=== PATIENT | female | born 1980 | race Caucasian/White ===

== ENCOUNTER 2023-07-24 16:38 | Emergency (ER) | payer OTHER, SELFPAY ==
[2023-07-24 16:54] VITALS: BP 155/88; PULSE 92; RESP 16; TEMP 37.1; O2SAT 98; BMI 44.6
--- NOTE | 2023-07-24 17:35 | ED_ITS ---
HPI - General Adult General Chief complaint: Ear/Nose/Throat Problem Stated complaint: PCP says poss peritonsillar abscess, needs image Time Seen by Provider: 07/24/23 17:34 History of Present Illness HPI narrative: Patient here as directed by PCP with concerns over possible peritonsillar abscess. She has had ongoing throat pain ( mostly left side but sometimes right ), low grade fevers, feeling of throat being swollen since 2022. Has had two courses of antibiotics and steroids without much effect. 42-year-old woman presenting to the emergency department with concern of ?peritonsillar abscess?. Has had throat pain of some sort since . Has been on brief course of prednisone initially along with Augmentin for tonsillitis and concurrent sinusitis. Describes an initial concern of though not quite check peritonsillar abscess. Briefly better worsening again placed on cefdinir and a longer course of prednisone. Now symptoms have recurred. Needs a deep throat pain. She also has pain at her tongue posteriorly. Seems to alternate side to side worse than the left. She has left-sided neck pain. Years of also been congested though it sounds like less so at the moment. Has had a ?fever? noting 99 point 8 or 99.7 over the last couple of days when returning from work. Brief rash in the right upper chest. She is done with having this. She is impressed at how painful her tongue can feel. There have been some white spots that she has removed from her tonsils with a Q-tip. On initial evaluation was screened negative for COVID influenza and strep she says. Later discussed that does have a history of GERD and takes daily omeprazole. Related Data Home Medications Medication Instructions Recorded Confirmed hydrochlorothiazide 25 mg tablet 25 mg PO DAILY 07/24/23 07/24/23 levothyroxine 125 mcg tablet 125 mcg PO DAILY 07/24/23 07/24/23 omeprazole 20 mg capsule,delayed 20 mg PO DAILY 07/24/23 07/24/23 release potassium chloride 10 mEq 10 meq PO DAILY 07/24/23 07/24/23 tablet,extended release Previous Rx's Medication Instructions Recorded Magic Mouthwash 5 - 10 ml PO TID-QID PRN #120 mL 07/24/23 (Lidocaine/Benadryl/Maalox) 120 mL suspension famotidine 40 mg tablet 40 mg PO QHS #30 tabs 07/24/23 Allergies Allergy/AdvReac Type Severity Reaction Status Date / Time erythromycin base Allergy Unknown Verified 07/24/23 16:50 Review of Systems Status of ROS: Reports: 6 or more systems reviewed and unremarkable except as noted in History and below [facility] Social History Smoking Status: Never smoker Second hand tobacco smoke exposure: No How often do you have a drink containing alcohol: never How often do you have six or more drinks on one occasion: Never AUDIT-C Alcohol total score: 0 Non-prescribed substance use: denies use Exam Narrative: Exam Narrative: Pleasant. NAD. Speaking easily. No stridor. Cheeks and neck are flushed. A little bit more full in the left side versus the right of the neck. I do not appreciate lymphadenopathy. Oropharynx with mildly full tonsils without significant erythema. Lungs appear to be clear. Heart with elevated rate in a regular rhythm. Distant. Skin is warm and dry with good turgor. Const: Vital Signs, click to edit/add: Vital Signs - 24 hr 07/24/23 16:54 07/24/23 21:21 Temperature 98.7 F 98.2 F Pulse Rate [Pulse Oximeter] 92 92 Respiratory Rate 16 16 Blood Pressure [Ri t Upper Arm] 155/88 H 135/74 Pulse Oximetry 98 98 Oxygen Delivery Me thod Room Air Room Air Documenting provider has reviewed patient's vital signs: yes Course Vital Signs Vital signs: Initial Vital Signs Temperature 98.7 F 07/24/23 16:54 Temperature Source Temporal Artery Scan 07/24/23 16:54 Pulse Rate 92 07/24/23 16:54 Respiratory Rate 16 07/24/23 16:54 Blood Pressure 155/88 H 07/24/23 16:54 Blood Pressure Mean 110 H 07/24/23 16:54 Blood Pressure Position Sitting 07/24/23 16:54 Pulse Oximetry 98 07/24/23 16:54 Oxygen Delivery Method Room Air 07/24/23 16:54 Vital Signs Temperature 98.7 F 07/24/23 16:54 Pulse Rate 92 07/24/23 16:54 Respiratory Rate 16 07/24/23 16:54 Blood Pressure 155/88 H 07/24/23 16:54 Pulse Oximetry 98 07/24/23 16:54 Oxygen Delivery Method Room Air 07/24/23 16:54 Temperature 98.2 F 07/24/23 22:35 Pulse Rate 92 07/24/23 22:35 Respiratory Rate 16 07/24/23 22:35 Blood Pressure 135/74 07/24/23 22:35 Pulse Oximetry 98 07/24/23 21:21 Oxygen Delivery Method Room Air 07/24/23 21:21 Medications Administered Medications: Discontinued Medications Generic Name Dose Route Start Last Admin Trade Name Eduardo PRN Reason Stop Dose Admin Sodium Chloride 1,000 mls @ 1,000 mls/hr 07/24/23 18:09 07/24/23 21:24 0.9 % Sodium Chloride 1000 Ml IV 07/24/23 19:08 Infused .Q1H ONE Infusion Medical Decision Making MDM Narrative Medical decision making narrative: Other than reported pain I do not see evidence of abscess. Given duration of though of symptoms perhaps it is time to do further imaging as anticipated. Lab work as well. Labs are reassuring with normal white count. Upon review CT images I do not see any fluid collection consistent with abscess. INDICATION: Deep throat and tongue pain for multiple weeks. TECHNIQUE: CT images acquired through the neck following intravenous contrast. COMPARISON: None. FINDINGS: The nasopharynx, oropharynx, hypopharynx, and larynx are widely patent without enhancing lesions. Mild diffuse enlargement of the lingual and palatine tonsils. No thickening of the epiglottis or retropharyngeal edema. The parapharyngeal fat is preserved. No enhancing lesions in the oral cavity or floor of mouth. The parotid and submandibular glands are unremarkable. The thyroid gland is unremarkable. Mildly enlarged bilateral level II lymph nodes demonstrate elongated morphology. Limited images through the brain are without pathologic intracranial enhancement. Minimal mucosal thickening in the visualized paranasal sinuses. The mastoid air cells are clear. No aggressive osseous lesions. No concerning opacities in the visualized lungs. IMPRESSION: 1. No mass or fluid collection in the neck. 2. Mild diffuse enlargement of the palatine and lingual tonsils, nonspecific though most likely reactive. 3. Mildly enlarged bilateral level II lymph nodes demonstrate elongated morphol ogy and are also most likely reactive. Discussed these findings with on-call ENT. Symptoms and findings suspected to be more related to reflux than infection. See patient discharge plan Lab Data Lab results reviewed: Yes I reviewed the patient's lab results Labs: Lab Results 07/24/23 Range/Units 18:08 WBC 11.93 H (4.50-11.00) K/uL RBC 4.78 (4.00-5.20) m/uL Hgb 14.5 (12.0-16.0) gm/dL Hct 44.9 (33.0-51.0) % MCV 94 (80-100) fL MCH 30 (26-34) pg MCHC 32 (32-36) gm/dL RDW Coeff of Esther 13.2 (11.5-15.5) % Plt Count 256 (140-440) K/uL Neut % (Auto) 71.6 (42.0-72.0) % Lymph % (Auto) 20.9 (20-44) % [place] % (Auto) 6.5 (0.0-11.0) % Eos % (Auto) 0.5 (0.0-7.0) % Baso % (Auto) 0.3 (0.0-3.0) % Neut # (Auto) 8.50 H (1.7-7.0) K/uL Lymph # (Auto) 2.50 (0.90-2.90) K/uL [place] # (Auto) 0.80 (0.00-0.90) K/UL Eos # (Auto) 0.10 (0.00-0.50) K/uL Baso # (Auto) 0.00 (0.00-0.30) K/uL Abs Immat Gran (auto) 0.00 (0.00-0.30) K/uL Imm/Tot Granulo (auto) 0.2 % Sodium 138 (135-149) mmol/L Potassium 3.2 L (3.6-5.1) mmol/L Chloride 101 (96-114) mmol/L Carbon Dioxide 29 (20-32) mmol/L Anion Gap 8 (7-15) mEq/L BUN 18 (5-24) mg/dL Creatinine 0.8 (0.5-1.5) mg/dL Estimated Creat Clear 79.91 Estimated GFR 95 ml/min Glucose 93 (60-115) mg/dL Calcium 9.1 (8.4-10.6) mg/dL C-Reactive Protein 1.4 H (0.5-1.0) mg/dL Discharge Plan Discharge Clinical Impression: Tonsillitis Patient Disposition: Home, Self-Care Condition: Stable Additional Instructions: Might get temporary relief with this magic mouthwash though it is not a definitive treatment. Take the famotidine in the evening in addition to your daily omeprazole. I suppose another option is to just stop the omeprazole and see how famotidine works for you. Be sure to sleep with head of bed elevated. Check with your primary to see if they can help you move up your ENT appointment. For now can continue with 400-600 mg of ibuprofen maybe with a little food 2-3 times daily. Alternative to the ibuprofen might be up to 500 mg naproxen twice daily. Can also take acetaminophen up to 1000 mg per dose with either of these. Prescriptions: New famotidine 40 mg tablet 40 mg PO QHS Qty: 30 2RF Magic Mouthwash (Lidocaine/Benadryl/Maalox) 120 mL suspension 5 - 10 ml PO TID-QID PRNQty: 120 0RF Rx Instructions: Lidocaine Viscous 2 % mucosal solution 40 mL; Maalox 200 mg-200 mg-20 mg/5 mL oral suspension 40 mL; Benadryl 12.5 mg/5 mL oral elixir 40 mL; Per 120 mL SWISH AND SPIT. MAY COMPOUND IF FIRST PRODUCT IS NOT AVAILABLE. No Action potassium chloride 10 mEq tablet extended release 10 meq PO DAILY levothyroxine 125 mcg tablet 125 mcg PO DAILY hydrochlorothiazide 25 mg tablet 25 mg PO DAILY omeprazole 20 mg capsule,delayed release(DR/EC) 20 mg PO DAILY Follow Up/Referrals: Provider,Not a Local [Primary Care Provider] - Stand Alone Forms: [facility] Info Instructions
--- NOTE | 2023-07-24 18:07 | CRLHL7_ITS ---
For Patients: As a result of the Century Cures Act, medical imaging exams and procedure reports are released immediately into your electronic medical record. You may view this report before your referring provider. If you have questions, please contact your health care provider. INDICATION: Deep throat and tongue pain for multiple weeks. TECHNIQUE: CT images acquired through the neck following intravenous contrast. COMPARISON: None. FINDINGS: The nasopharynx, oropharynx, hypopharynx, and larynx are widely patent without enhancing lesions. Mild diffuse enlargement of the lingual and palatine tonsils. No thickening of the epiglottis or retropharyngeal edema. The parapharyngeal fat is preserved. No enhancing lesions in the oral cavity or floor of mouth. The parotid and submandibular glands are unremarkable. The thyroid gland is unremarkable. Mildly enlarged bilateral level II lymph nodes demonstrate elongated morphology. Limited images through the brain are without pathologic intracranial enhancement. Minimal mucosal thickening in the visualized paranasal sinuses. The mastoid air cells are clear. No aggressive osseous lesions. No concerning opacities in the visualized lungs. IMPRESSION: 1. No mass or fluid collection in the neck. 2. Mild diffuse enlargement of the palatine and lingual tonsils, nonspecific though most likely reactive. 3. Mildly enlarged bilateral level II lymph nodes demonstrate elongated morphology and are also most likely reactive. Please note that all CT scans at this facility use dose modulation, iterative reconstruction, and/or weight-based dosing when appropriate to reduce radiation dose to as low as reasonably achievable. Dictated by John Pastrana MD @ 07/24/2023 7:27:34 PM (Electronically Signed)
[2023-07-24] MEDS: 0.9 % SODIUM CHLORIDE 1000 ml 1,000 ML IV (19:00)
[2023-07-24 21:15] LABS: Chloride* 101 mmol/L (96-114)
[2023-07-24 21:16] LABS: Potassium* 3.2 mmol/L (3.6-5.1); Sodium* 138 mmol/L (135-149)
[2023-07-24 21:18] LABS: Creatinine* 0.8 mg/dL (0.5-1.5); Est. Creatinine Clearance* 79.91; Estimated Glomerular Filt Rate 95 ml/min
[2023-07-24 21:19] LABS: Anion Gap 8 mEq/L (7-15); Blood Urea Nitrogen* 18 mg/dL (5-24); Calcium* 9.1 mg/dL (8.4-10.6); Carbon Dioxide* 29 mmol/L (20-32); Glucose* 93 mg/dL (60-115)
[2023-07-24 21:21] VITALS: BP 135/74; PULSE 92; RESP 16; TEMP 36.8; O2SAT 98
[2023-07-24 21:22] LABS: C Reactive Protein* 1.4 mg/dL (0.5-1.0)
[2023-07-24 22:06] LABS: Basophils Percent Auto 0.3 % (0.0-3.0); Eosinophils Percent Auto 0.5 % (0.0-7.0); Hematocrit 44.9 % (33.0-51.0); Hemoglobin* 14.5 gm/dL (12.0-16.0); Immature Granulocytes Pct Auto 0.2 %; Lymphocytes Percent Auto 20.9 % (20-44); Mean Corpuscular HGB Conc 32 gm/dL (32-36); Mean Corpuscular Hemoglobin 30 pg (26-34); Mean Corpuscular Volume 94 fL (80-100); Monocytes Percent Auto 6.5 % (0.0-11.0); Neutrophils Percent Auto 71.6 % (42.0-72.0); Platelet Count* 256 K/uL (140-440); RDW Coefficient of Variation % 13.2 % (11.5-15.5); Red Blood Count 4.78 m/uL (4.00-5.20); White Blood Count* 11.93 K/uL (4.50-11.00)
[2023-07-24 22:22] LABS: Slide Review Reflex No
[2023-07-24 22:35] VITALS: BP 135/74; PULSE 92; RESP 16; TEMP 36.8
== END 2023-07-24 21:45 | disposition home or self-care (01) ==
PROVIDERS: Emergency Provider Family Medicine
DX: J03.90 Acute tonsillitis, unspecified (principal)
CPT/HCPCS: 36415; 70491; 80048; 85025; 86140; 99283; 99284; J7030; Q9967